=== PATIENT | male | born 1980 | race Caucasian/White ===

== ENCOUNTER 2019-03-25 06:30 | Inpatient (IN) ==
[2019-03-25] MEDS ORDERED: VANCOMYCIN 1 GM/NS 1 GM/250 ML IVPB IV ONE ×2 (07:16→14:30)
--- NOTE | 2019-03-25 07:20 | PROVIDER DOCUMENTATION ---
HPI-Rash/Wound/ReCheck - General Chief Complaint: Return W/Comp Stated Complaint: ABSCESS/RT KNEE Time Seen by Provider: 03/25/19 07:06 Source: patient, old records Allergies/Adverse Reactions: Allergies Allergy/AdvReac Type Severity Reaction Status Date / Time Penicillins Allergy HIVES Verified 05/23/18 05:14 Home Medications: Home Medication List Medication Instructions Recorded Confirmed Last Taken Type Sulfamethoxazole/Trimethoprim 1 ea PO BID #28 tab 03/20/19 03/25/19 Unknown Rx [Bactrim Ds Tablet] - History of Present Illness-Dermatology Nature of Presenting Problem: pt underwent I&D of spontaneous abscess sevl days ago. returns cc: entire leg now red, swollen. denies fever @ home. last tet 7-8 yr ago. allergic to PCN. Review of Systems - Adult - REVIEW OF SYSTEMS - ADULT Constitutional: reports: no symptoms reported Eyes: reports: no symptoms reported Ears, Nose, Mouth & Throat: reports: no symptoms reported Cardiovascular: reports: no symptoms reported Respiratory: reports: no symptoms reported Gastrointestinal: reports: no symptoms reported Genitourinary: reports: no symptoms reported Musculoskeletal: reports: no symptoms reported Integumentary: reports: see HPI Neurological: reports: no symptoms reported Psychiatric: reports: no symptoms reported Endocrine: reports: no symptoms reported Hematologic/Lymphatic: reports: no symptoms reported Allergic/Immunologic: reports: no symptoms reported All Other Systems: Reviewed and Negative Past History - Adult - PAST MEDICAL HISTORY-ADULT Review of Records: reports: Old Records Reviewed Physical Exam-General - PHYSICAL EXAM-ADULT Initial Vital Signs Reviewed: Yes - CONSTITUTIONAL General Appearance: appears well, alert, no apparent distress - HEAD, EARS, NOSE, MOUTH & THROAT HENMT: normocephalic/atraumatic, moist mucous membranes - NECK Neck: supple - RESPIRATORY Respiratory: lungs clear, normal breath sounds - CARDIOVASCULAR Cardiovascular: normal peripheral pulses, regular rate, rhythm, tachycardia - GASTROINTESTINAL (ABDOMEN) Abdominal Exam: non tender, soft - LYMPHATIC Lymphatic: no adenopathy - MUSCULOSKELETAL Back Exam: normal inspection Extremity: normal range of motion, other (draining (serous) sinus w/ hypertrophic raised margins at distal alberto-medial R thigh. no limitation in knee ROM. no knee effusion. palpable induration subcut extends well beyond margins of erythema (est. 8 cm). no discrete proximal lymphangiitic streaking however entire distal anterior R leg STS and erythematous.) - SKIN Integumentary: normal color, warm/dry, other (see comments under 'ext.' exam). negative: rash - NEUROLOGIC Neurologic: astrobiologist II-XII nml as tested, grossly normal - PSYCHIATRIC Psych/Mental Status: normal mood/affect, normal thought content Progress - PLAN OF CARE/RESULTS Progress/Plan/Lab Results: Vital Signs - 8 hr 03/25/19 06:35 03/25/19 06:52 03/25/19 06:53 Temperature 97.7 F Pulse Rate 112 H Respiratory Rate 16 Blood Pressure 141/80 142/90 O2 Sat by Pulse Oximetry 98 98 98 03/25/19 07:00 03/25/19 07:10 03/25/19 07:20 Temperature Pulse Rate Respiratory Rate Blood Pressure O2 Sat by Pulse Oximetry 97 97 97 03/25/19 07:30 03/25/19 07:40 03/25/19 07:43 Temperature Pulse Rate Respiratory Rate Blood Pressure 131/77 O2 Sat by Pulse Oximetry 97 99 98 03/25/19 07:50 03/25/19 08:00 03/25/19 08:01 Temperature Pulse Rate Respiratory Rate Blood Pressure 118/73 O2 Sat by Pulse Oximetry 97 98 98 03/25/19 08:02 03/25/19 08:10 03/25/19 08:20 Temperature Pulse Rate Respiratory Rate Blood Pressure O2 Sat by Pulse Oximetry 98 99 99 03/25/19 08:31 03/25/19 08:40 03/25/19 08:50 Temperature Pulse Rate Respiratory Rate Blood Pressure O2 Sat by Pulse Oximetry 99 97 97 03/25/19 09:00 03/25/19 09:10 03/25/19 09:13 Temperature Pulse Rate Respiratory Rate Blood Pressure 131/75 O2 Sat by Pulse Oximetry 97 97 98 03/25/19 09:20 03/25/19 09:30 03/25/19 09:31 Temperature Pulse Rate Respiratory Rate Blood Pressure 121/74 O2 Sat by Pulse Oximetry 96 97 96 03/25/19 09:40 03/25/19 09:50 03/25/19 10:00 Temperature Pulse Rate Respiratory Rate Blood Pressure O2 Sat by Pulse Oximetry 96 96 96 03/25/19 10:01 Temperature Pulse Rate Respiratory Rate Blood Pressure 119/67 O2 Sat by Pulse Oximetry 96 Laboratory Results - last 24 hr 03/25/19 03/25/19 03/25/19 07:42 07:42 07:42 WBC 7.85 RBC 4.36 L Hgb 13.2 L Hct 39.8 L MCV 91.3 MCH 30.3 MCHC 33.2 RDW Std Deviation 12.8 Plt Count 382 MPV 8.7 Immature Gran % (Auto) 0.5 Neut % (Auto) 61.8 Lymph % (Auto) 24.7 Sullivan % (Auto) 6.6 Eos % (Auto) 6.0 Baso % (Auto) 0.4 Immature Gran # (Auto) 0.04 Neut # (Auto) 4.85 Lymph # (Auto) 1.94 Sullivan # (Auto) 0.52 Eos # (Auto) 0.47 Baso # (Auto) 0.03 PT 13.5 INR 0.95 PTT (Actin FS) 39.0 Sodium 140 Potassium 4.1 Chloride 104 Carbon Dioxide 27 Anion Gap 9 BUN 17 Creatinine 0.9 Estimated GFR/1.73 m2 > 60 BUN/Creatinine Ratio 19 Glucose 113 H Calculated Osmolality 282 Calcium 8.9 Total Bilirubin < 0.15 L AST 25 ALT 26 Alkaline Phosphatase 95 Total Protein 7.0 Albumin 3.8 Globulin 3.2 Albumin/Globulin Ratio 1.2 Plasma Lactate 03/25/19 07:42 WBC RBC Hgb Hct MCV MCH MCHC RDW Std Deviation Plt Count MPV Immature Gran % (Auto) Neut % (Auto) Lymph % (Auto) Sullivan % (Auto) Eos % (Auto) Baso % (Auto) Immature Gran # (Auto) Neut # (Auto) Lymph # (Auto) Sullivan # (Auto) Eos # (Auto) Baso # (Auto) PT INR PTT (Actin FS) Sodium Potassium Chloride Carbon Dioxide Anion Gap BUN Creatinine Estimated GFR/1.73 m2 BUN/Creatinine Ratio Glucose Calculated Osmolality Calcium Total Bilirubin AST ALT Alkaline Phosphatase Total Protein Albumin Globulin Albumin/Globulin Ratio Plasma Lactate 1.2 Orders Category Date Time Status CBC WITH DIFF [HEME] Stat Lab 03/25/19 07:42 Completed COMPREHENSIVE METABOLIC PANEL [CHEM] Stat Lab 03/25/19 07:42 Completed LACTATE, PLASMA [CHEM] Stat Lab 03/25/19 07:42 Completed PT [PROTIME WITH INR] [COAG] Stat Lab 03/25/19 07:42 Completed PTT [COAG] Stat Lab 03/25/19 07:42 Completed WOUND CULTURE INC GRAM STAIN [RM] Routine Lab 03/25/19 10:53 Received 0.9% Sodium Chloride Inj [Ns] 1,000 ml Med 03/25/19 07:21 Discontinued IV 999 mls/hr Vancomycin 1 gm/Ns Med 03/25/19 07:16 Discontinued 1 gm in 250 ml IV NOW Result Diagrams: 03/25/19 07:42 03/25/19 07:42 - REASSESSMENT Reassessment #1 Time Reassessed: 10:15 Status: unchanged (will consult for admission) - CONSULTS/PCP/HOSPITALIST Notification #1 *Consult/PCP/Hospitalist*: Adkins Consult Disposition: Admit Departure - Departure Date of Disposition Decision: 03/25/19 Time of Disposition Decision: 11:41 DIAGNOSIS: Cellulitis Disposition: ADMITTED INPATIENT 09 Certified Medical Emergency: Emergent Condition: Stable Referrals and Follow-Ups: None,PCP [Primary Care Provider] - - Critical Care Note This patient required my direct & personal management of CC.: No Attestation - Physician/ SHANIKA Attestation The physician spent face to face time with patient:: Yes Advanced Practice Provider documentation review:: Supervising physician onsite and consulted in the evaluation and care of this patient. The physician did have a face to face encounter with the patient.
[2019-03-25] MEDS ORDERED: NS 1,000 ML IV ONE ×2 (07:21→13:18)
[2019-03-25 08:01] LABS: BASO# 0.03 X1000 (0.0-0.2); BASO% 0.4 % (0.0-0.8); EOS# 0.47 X1000 (0.0-0.7); HEMATOCRIT 39.8 % (42.0-52.0); HEMOGLOBIN 13.2 g/dL (14.0-18.0); IMM GRAN# 0.04 X1000 (0.0-0.04); IMM GRAN% 0.5 % (0.0-0.5); LYMPH# 1.94 X1000 (1.2-3.4); LYMPH% 24.7 % (20.5-51.1); MCH 30.3 PG (27-31); MCHC 33.2 g/dL (33-37); MCV 91.3 FL (81-99); MONO# 0.52 X1000 (0.11-0.59); MONO% 6.6 % (1.7-9.3); MPV 8.7 FL (7.4-10.4); NEUT# 4.85 X1000 (1.4-6.5); NEUT% 61.8 % (42.2-75.2); PLT 382 X1000 (130-400); RBC 4.36 XMIL (4.7-6.1); RDW 12.8 % (11.5-14.5); WBC 7.85 X1000 (4.8-10.8)
[2019-03-25 08:13] LABS: INR 0.95; PROTIME 13.5 Seconds (11.0-16.0)
[2019-03-25 08:19] LABS: AGAP 9; ALB/GLOB RATIO 1.2; ALBUMIN 3.8 g/dL (3.5-5.0); ALKALINE PHOSPHATASE 95 U/L (32-122); BUN 17 mg/dL (8-22); CALCIUM 8.9 mg/dL (8.8-10.2); CHLORIDE 104 mmol/L (98-107); COSMO 282; CREATININE 0.9 mg/dL (0.7-1.2); ESTIMATED GFR > 60; GLUCOSE 113 mg/dL (70-104); GOT 25 U/L (10-34); GPT 26 U/L (10-44); POTASSIUM 4.1 mmol/L (3.5-5.1); SODIUM 140 mmol/L (136-145); TCO2 27 mmol/L (25-35); TOTAL BILIRUBIN < 0.15 mg/dL (0.20-1.00)
--- NOTE | 2019-03-25 12:23 | Diag Imaging Result Doc PS360 ---
EXAM: KNEE 3 VIEWS RIGHT HISTORY: abscess, right knee, eval for joint involvement TECHNIQUE: Right knee, three views COMPARISON: None. FINDINGS: No fracture. No dislocation. Minimal medial joint space narrowing. No bone destruction. No periosteal reaction. IMPRESSION: Minimal arthritis. Electronically signed by Luis Manuel Pitts 03/25/2019 12:21 PM
[2019-03-25] MEDS ORDERED: TYLENOL PO PRN ×3 (13:10→14:51)
[2019-03-25] MEDS ORDERED: VANCOMYCIN IV PER PHARMACY MISC SCH ×2 (13:10→13:30)
[2019-03-25] MEDS: NICODERM PATCH TD SCH (13:45)
--- NOTE | 2019-03-25 13:55 | HISTORY AND PHYSICAL ---
PRIMARY CARE PHYSICIAN: None. CHIEF COMPLAINT: Right knee pain. HISTORY OF PRESENT ILLNESS: Mr. Ventura is a 38-year-old male with a history of nicotine and methamphetamine dependence, who presented to the ER with an abscess to the medial aspect of the right knee for about 1 week. He noticed a small red bump to the right knee, he reports that it got bigger essentially on its own, possibly due to his pants rubbing against the wound. It became large enough that it began to form abscess and drain. He came to the ER a few days ago, was prescribed Bactrim, and discharged. Unfortunately, this did not improve symptoms, he has had increasing pain and swelling of the right leg with continued drainage from the wound itself. He denies any envenomation or trauma to the knee. He denies any fever, nausea, vomiting, or diarrhea. His vitals are stable. He will be admitted for IV antibiotics and surgical consultation. PAST MEDICAL HISTORY: 1. Amphetamine dependence. 2. Nicotine dependence. PAST SURGICAL HISTORY: None. SOCIAL HISTORY: He smokes half a pack a day. Denies alcohol use. He uses methamphetamine varying between snorting, smoking, and injecting, he last used amphetamines 2 days ago he reports smoking. His last IV use was around a month ago. He denies any use of needles to the area of infection. FAMILY HISTORY: Noncontributory. REVIEW OF SYSTEMS: A 14-point review of systems was obtained and found to be negative with the exception of the HPI. HOME MEDICATIONS: None. ALLERGIES: Penicillin. PHYSICAL EXAMINATION: VITAL SIGNS: Blood pressure is 117/75, heart rate is 112, respiratory rate is 18, O2 saturation 99% on room air, temperature 97.7. GENERAL: This is a somewhat disheveled-appearing 38-year-old male lying in the hospital bed in no acute distress. NEUROLOGICAL: He is awake and alert. No focal deficits noted. HEENT: Head is atraumatic and normocephalic. Pupils are equal, round, and reactive to light. Oral mucosa is moist. NECK: Trachea is midline. There is no JVD. CHEST: Clear to auscultation. CARDIOVASCULAR: Regular rate and rhythm. S1, S2 is noted. There are no murmurs. GASTROINTESTINAL: Soft, nondistended, nontender. Bowel sounds are active. EXTREMITIES: Right medial knee wound about the size of a half dollar draining purulent material with redness down the entire right leg with 1+ edema. Left lower extremity without edema, clubbing, or cyanosis. DIAGNOSTIC DATA: Right knee x-ray is negative for acute abnormality. WBC 7.85, hemoglobin 13.2, hematocrit 39.8, platelet count 382. INR 0.95. Chemistry reviewed and unremarkable. ASSESSMENT AND PLAN: 1. Right medial knee abscess with lower extremity cellulitis failed outpatient therapy: He will be admitted. Blood cultures have been drawn as well as wound cultures. Will continue vancomycin. Consult Surgery. 2. Nicotine and methamphetamine abuse: We have advised the patient to quit using any illicit substances as well as cigarettes. We will write a nicotine patch. Continue cessation education. Monitor for any signs of withdrawal. 3. Deep venous thrombosis prophylaxis with Lovenox. 4. Further recommendations to follow. Dictated by WILLIAM Thomas for Jaya Adkins MD cc: WILLIAM Thomas MD I agree with most components of history, physical, assessment and plan. A separate addendum has been dictated. [facility]
[2019-03-25] MEDS ORDERED: ULTRAM PO PRN (14:51)
--- NOTE | 2019-03-25 15:52 | HISTORY AND PHYSICAL ---
ADDENDUM: I agree with most components of history, physical, assessment and plan. In brief, Mr. Ventura is a 38 years old man with history of intravenous drug use, who comes in for the chief complaint of right lower extremity abscess with failed outpatient p.o. Bactrim therapy. Apparently, patient had developed what appears to be folliculitis based on the photographs that he showed me a few days ago. He had come to the emergency room as it had started developing into an abscess. He was taking some antibiotics prior to coming to the hospital, which was not his. In the emergency room, he received incision and debridement, and was discharged on p.o. antibiotics. However, he comes back again about 48 hours later with worsening right lower extremity swelling, pain and developing an abscess. Yesterday, his pain was unbearable to an extent that he meshed his abscess and broke it open. In the emergency room, his vitals have been unremarkable except a pulse of 112 recorded one time. Currently, he is not tachycardic. SUBJECTIVE: He states that his last injection with methamphetamine was a few days ago. He could not tell me when exactly it was. He denies any fevers or chills. VITALS: Currently detect, he is afebrile with temperature of 97.7 degrees, pulse of 82 on bedside monitor, blood pressure 133/80, saturating 100% on room air. PHYSICAL EXAMINATION: GENERAL: Not in acute distress. Oral cavity is moist. LUNGS: Air entry bilaterally equal. No wheeze, rhonchi, crackles. CARDIOVASCULAR: S1, S2 normal. No murmur or gallop. ABDOMEN: No hepatosplenomegaly. EXTREMITIES: He does have bilateral lower extremity edema. LYMPHATIC: No inguinal or femoral lymphadenopathy on the right side. There is about 4 x 4 cm abscess affecting medial side of the right knee with serosanguineous oozing. There is significant tenderness, and it appears that the abscess is involving deeper tissue as well. LABORATORY: No leukocytosis. Normal coagulation profile. Normal kidney function. Microbiology shows blood culture and wound culture are in lab. IMAGING: Knee x-ray had minimal arthritis without any fracture or dislocation without any bone destruction or periosteal reaction. ASSESSMENT AND PLAN: 1. Abscess involving the right medial knee. Start patient on intravenous vancomycin and consult surgery for need for incision and debridement. Continue intravenous fluids, and follow up BMP tomorrow. I will change antibiotics according to culture sensitivity. 2. Tobacco abuse. Continue nicotine patch. 3. Continue enoxaparin for DVT prophylaxis. DISPOSITION: We will continue to monitor patient inside the hospital for need for intravenous antibiotics, and possible incision debridement. Plan of care discussed with him. All of his questions have been answered.. cc: Jaya Adkins MD MTDD
[2019-03-25] MEDS ORDERED: LOVENOX SUBQ SCH (19:00)
[2019-03-25] MEDS ORDERED: NORCO-10 PO PRN (21:14)
[2019-03-25] MEDS: VANCOMYCIN 1,800 MG in NS 250 ML IV SCH (21:32)
--- NOTE | 2019-03-26 02:07 | GENERAL SURGERY CONSULTATION ---
DATE: 03/25/2019 REASON FOR CONSULTATION: Right knee abscess. HISTORY OF PRESENT ILLNESS: This is a 38-year-old male who developed a small pustule and redness on his right medial knee over a week ago. It started progressing in size and severity with tenderness and pain. He went to the emergency room, an I and D was performed, he was put on Bactrim. However, it continued to progress with swelling, redness, and pain, and he manually pressed on it and squeezed out some infected looking material that was thick. His leg was very swollen and he came to the emergency room again for re-evaluation. He has been readmitted by the hospitalist for cultures, IV antibiotics, and further care. PAST MEDICAL HISTORY: Amphetamine and nicotine dependence. HOME MEDICATIONS: None. ALLERGIES: Penicillin. FAMILY HISTORY: Reviewed and noncontributory. SOCIAL HISTORY: He smokes a half pack per day. He uses methamphetamine. No alcohol use. REVIEW OF SYSTEMS: Ten-systems reviewed and negative except as noted above. PHYSICAL EXAMINATION: Vital Signs: Temperature 98 degrees, pulse 77, respirations 18, blood pressure 127/82, O2 saturation 100%. General: Well-developed, well-nourished male, alert, in no distress who looks his stated age. HEENT: Normocephalic, atraumatic. Extraocular muscles intact. Pupils equal, round, reactive to light. Sclerae anicteric. Neck: Supple. No thyromegaly. Cardiovascular: Regular rate and rhythm. Respiratory: Bilateral breath sounds. No work of breathing. Gastrointestinal: Soft, nontender, nondistended. Extremities: His right medial knee has an area of redness, tenderness, and induration with an open wound and serosanguineous drainage. The right distal leg has 2+ edema and some mild warmth. IMAGING: His knee x-ray shows minimal arthritis. ASSESSMENT/PLAN: A 38-year-old male with right knee abscess and cellulitis, status post incision and drainage. No further surgery is indicated at this time. I cleaned the wound with Betadine and tomorrow we will start mupirocin ointment twice a day. Continue the antibiotics and follow the cultures. I expect this to improve with these measures. cc: Elfego Sifuentes MD
[2019-03-26 07:04] LABS: BASO% 0.8 % (0.0-0.8); EOS% 5.5 % (0.0-10.0); HEMATOCRIT 43.9 % (42.0-52.0); HEMOGLOBIN 14.2 g/dL (14.0-18.0); IMM GRAN% 0.5 % (0.0-0.5); LYMPH% 33.9 % (20.5-51.1); MCH 30.3 PG (27-31); MCHC 32.3 g/dL (33-37); MCV 93.6 FL (81-99); MONO% 7.4 % (1.7-9.3); MPV 8.6 FL (7.4-10.4); NEUT% 51.9 % (42.2-75.2); PLT 403 X1000 (130-400); RBC 4.69 XMIL (4.7-6.1); WBC 7.32 X1000 (4.8-10.8)
[2019-03-26 07:05] LABS: BASO# 0.06 X1000 (0.0-0.2); IMM GRAN# 0.04 X1000 (0.0-0.04); LYMPH# 2.48 X1000 (1.2-3.4); MONO# 0.54 X1000 (0.11-0.59)
[2019-03-26 07:28] LABS: AGAP 9; BUN 16 mg/dL (8-22); CHLORIDE 105 mmol/L (98-107); GLUCOSE 87 mg/dL (70-104); POTASSIUM 4.4 mmol/L (3.5-5.1); SODIUM 141 mmol/L (136-145); TCO2 27 mmol/L (25-35)
[2019-03-26 07:29] LABS: COSMO 282; CREATININE 0.9 mg/dL (0.7-1.2); ESTIMATED GFR > 60
[2019-03-26] MEDS: NICODERM PATCH TD SCH (08:39)
[2019-03-26] MEDS: VANCOMYCIN 1,800 MG in NS 250 ML IV SCH (08:39)
[2019-03-26] MEDS ORDERED: BACTROBAN OINTMENT TOP SCH (09:00)
[2019-03-26] MEDS ORDERED: CLEOCIN PO SCH (10:15)
[2019-03-26 12:21] VITALS: BP 133/81
--- NOTE | 2019-03-26 15:18 | GENERAL SURGERY PROGRESS NOTE ---
DATE: 03/26/2019 SUBJECTIVE: The patient feels okay this morning. No worsening of pain or swelling overnight. OBJECTIVE: He is afebrile. Vital signs are stable.Extremities: The right knee wound is the same as yesterday with some erythema and serosanguineous drainage and induration around it. It is tender. The right leg is swollen and mildly warm but no red streaking. LABORATORY: White blood cell count 7. Electrolytes reviewed unremarkable. ASSESSMENT AND PLAN: A 38-year-old male with right knee skin abscess status post incision and drainage. He insists on going home today. He does have a 14 day prescription of Bactrim at home. I encouraged him to do this, instruction how to clean the wound. He will apply mupirocin ointment to the wound twice daily. He will follow up with me for further check. cc: Elfego Sifuentes MD
--- NOTE | 2019-03-27 16:10 | DISCHARGE SUMMARY ---
ADMISSION DATE: 03/25/2019 DISCHARGE DATE: 03/26/2019 DISCHARGE DISPOSITION: Home. DISCHARGE CONDITION: Stable, alert, oriented x3. Able to walk without anyone's support, though the blood culture results are pending patient was adamant and persistent about going home citing socially issues including lack of insurance, no 1 to take care of his dog after understanding risks of going home. DISCHARGE DIAGNOSIS: 1. Subcutaneous abscess involving right medial aspect of knee joint with failed outpatient p.o. antibiotics. 2. Tobacco abuse. 3. Methamphetamine abuse by history. OTHER DIAGNOSIS: 1. Past history of incarceration. 2. Past history of tobacco abuse. CONSULTATION: General surgery, Dr. Sifuentes. DISCHARGE MEDICATIONS: Acetaminophen 650 mg p.o. q.6 hours as needed for pain, clindamycin 300 mg t.i.d. 20 capsules have been prescribed, mupirocin ointment 22 g tube 1 application topical b.i.d. tube has been provided to him. VITALS: At the time of discharge temperature 98 degrees, pulse 84, respiratory 15, blood pressure 118/69 saturating 100% room air. PHYSICAL EXAMINATION: At the time of discharge patient is alert, oriented x3. Air entry bilateral equal, no wheeze, rhonchi, crackles. S1, S2 normal. No murmur, rub or gallop. He does not have any pallor, cyanosis, clubbing or icterus. Abdomen soft, nontender. No hepatosplenomegaly. He has mild bilateral lower extremity edema which is significantly improved from presentation. His erythema affecting the right knee joint region has also significantly decreased. His tenderness also decreased. He has a bandage over his right knee and there is mild tenderness around it. However he is able to flex and extend his right knee. SIGNIFICANT LABS: He did not have leukocytosis with WBC of 7.3, hemoglobin of 14.2, platelet of 403,000. No coagulation abnormality. He has normal electrolytes, normal kidney function with BUN of 16, creatinine of 0.9. Significant microbiology, Gram stain and wound culture from his right knee abscess was growing gram-positive cocci. Final result is pending. Blood culture prelim analysis does not show any growth however final culture are still pending and it has been only 24 hours since blood culture were collected. ASSESSMENT AND PLAN: Mr. Ventura is 38 years old man with history of tobacco use and intravenous methamphetamine abuse who came in with chief complaints of worsening right lower extremity pain and developing abscess of about 4 to 5 days duration. Based on the photograph that patient had presented, it looks like patient had a folliculitis of the region medial aspect of the right knee which eventually had become infected and had developed into an abscess and he had presented to the emergency room 3 days prior to current admission. Incision and drainage was performed and he was discharged on p.o. Bactrim. However his pain and redness did not get better, in fact it started getting worse so he himself had manually decompressed his abscess and had come to the emergency room again. While in the emergency room he was hemodynamically stable and he did not have leukocytosis however considering that he had failed outpatient antibiotic therapy he was admitted for IV antibiotics and blood cultures were obtained. He was on intravenous vancomycin and wound culture growing gram-positive cocci. Surgery was consulted for need to evaluate for need for repeat incision and drainage however considering that patient had already manually decompressed his abscess and it was spontaneously draining no surgical intervention was offered and patient was advised to apply topical mupirocin. The final blood culture results and wound culture results were pending. However patient did not want to stay back in the hospital citing that he did not have insurance, he did not want to pay out of pocket, also he had a dog that he wanted to take care of. I had explained to him extensively about risks of going home with possibly persistent bacteremia and need for IV antibiotics for at least 48 hours however he was adamant about going home. Considering he did not have clinical features of sepsis, it was decided to change his antibiotics to oral and discharge him home. He was provided detailed discharge instructions and was also advised to establish care with primary care provider. He was provided a prescription of clindamycin. Plan of care was discussed with him. TIME SPENT: More than 30 minutes. All of his questions were answered satisfactorily. cc: Jaya Adkins MD
== END 2019-03-26 13:00 | disposition home or self-care (01) | DRG 603 ==
LOC: ED 06:30 → EDIPHOLD 13:01 → 4N 15:09
PROVIDERS: ATTEND Internal Medicine
CPT/HCPCS: 73562; 80048; 80053; 83605; 85025; 85610; 85730; 87040; 87070; 87077; 87102; 87186; 96365; 96366; 99285; A9270; J1650; J3370; J7030; J7050